=== PATIENT | male | born 1965 | race Two or more races ===

== ENCOUNTER 2017-10-02 10:13 | Emergency (ER) | payer MEDICAID ==
[~2017-10-02] VITALS: Ht 175.3 cm; Wt 86.8 kg
[2017-10-02 10:56] LABS: BASOPHILS % (AUTO) 0.3 % (0-1); EOSINOPHILS # (AUTO) 0.1 X10'3 (0-0.9); EOSINOPHILS % (AUTO) 1.2 % (0-6); HEMATOCRIT 45.8 % (42.0-52.0); HEMOGLOBIN 16.1 g/dl (14.0-17.9); LYMPHOCYTES # (AUTO) 1.5 X10'3 (1.1-4.8); LYMPHOCYTES % (AUTO) 20.9 % (21-51); MEAN CORPUSCULAR HEMOGLOBIN 30.8 PG (27.0-31.0); MEAN CORPUSCULAR HGB CONC 35.2 % (33.0-36.5); MEAN CORPUSCULAR VOLUME 87.5 FL (78-98); MEAN PLATELET VOLUME 8.2 FL (7.4-10.4); MONOCYTES # (AUTO) 0.3 X10'3 (0-0.9); MONOCYTES % (AUTO) 4.2 % (2-12); NEUTROPHILS # (AUTO) 5.4 X10'3 (1.8-7.7); NEUTROPHILS % (AUTO) 73.4 % (42-75); PLATELET COUNT 306 X10'3 (140-440); RED BLOOD COUNT 5.23 X10'6 (4.70-6.10); RED CELL DISTRIBUTION WIDTH 12.4 % (11.5-14.5); WHITE BLOOD COUNT 7.4 X10'3 (4.5-11.0)
[2017-10-02 11:01] LABS: CLARITY,URINE SLIGHTLY CLOUDY (Clear); COLOR,URINE YELLOW (Yellow); GLUCOSE, URINE NEGATIVE (Neg); KETONES,URINE NEGATIVE (Neg); LEUKOCYTE ESTERASE ,URINE NEGATIVE (Neg); NITRITES, URINE NEGATIVE (Neg); OCCULT BLOOD,URINE NEGATIVE (Neg); PH,URINE 7.5 (4.8-8.0); PROTEIN,URINE NEGATIVE (Neg); UROBILINOGEN,URINE 0.2 E.U/dL (0.2-1.0)
[2017-10-02 11:04] LABS: PROTHROMBIN TIME 10.3 SECONDS (9.0-12.0)
[2017-10-02 11:05] LABS: UA COLLECTION TYPE CLN CATCH MIDSTREAM
[2017-10-02] MEDS ORDERED: ondansetron 4mg rapidly disintigrating tab PO ONE (11:05)
[2017-10-02 11:07] LABS: BACTERIA,URINE NONE SEEN /HPF (Neg); MUCUS STRANDS MANY /LPF (Neg); RBC,URINE NONE SEEN /HPF (0-2); SQUAMOUS EPITHELIAL CELL,UR FEW /LPF (FEW); WBC,URINE 0-4 /HPF (0-4)
[2017-10-02 11:14] LABS: ALANINE AMINOTRANSFERASE 34 U/L (12-78); ALBUMIN 4.3 G/DL (3.4-5.0); ALBUMIN/GLOBULIN RATIO 1.1 (1.1-1.5); ALKALINE PHOSPHATASE 64 IU/L (46-116); ANION GAP 8 (8-16); ASPARTATE AMINO TRANSFERASE 23 U/L (10-37); BLOOD UREA NITROGEN 14 MG/DL (7-18); CALCIUM 9.5 MG/DL (8.5-10.1); CHLORIDE 100 MMOL/L (99-107); GLUCOSE 185 MG/DL (70-104); POTASSIUM 4.5 MMOL/L (3.5-5.1); SODIUM 139 MMOL/L (135-145); TOTAL CARBON DIOXIDE 30.8 MMOL/L (24-32); TOTAL PROTEIN 8.3 G/DL (6.4-8.2); eGFR 79 ML/MIN
[2017-10-02 11:36] VITALS: BP 138/83
== END 2017-10-02 11:40 | disposition home or self-care (01) ==
LOC: ER 10:14
DX: R10.32 Left lower quadrant pain (principal); K59.00 Constipation, unspecified; G89.29 Other chronic pain
CPT/HCPCS: 36415; 80053; 81001; 85025; 85610; 99284

== ENCOUNTER 2022-10-22 19:16 | Emergency (ER) | payer MEDICAID ==
[~2022-10-22] VITALS: Ht 172.7 cm; Wt 86.4 kg
[2022-10-22] MEDS ORDERED: acetaminophen w/codeine (30MG) #3 tablet PO ONE (20:20)
[2022-10-22] MEDS ORDERED: neomy sulf/polymyx B sulf/HC 10ml otic suspension RIGHT EAR ONE (20:25)
[2022-10-22 20:45] VITALS: BP 169/76
[2022-10-22] MEDS ORDERED: HYDR-3973 PO ×2 (20:50→20:51)
== END 2022-10-22 21:03 | disposition home or self-care (01) ==
LOC: ER 19:16
DX: H60.91 Unspecified otitis externa, right ear (principal); G89.29 Other chronic pain; Z98.890 Other specified postprocedural states; Z79.899 Other long term (current) drug therapy
CPT/HCPCS: 99283

== ENCOUNTER 2022-10-25 20:57 | Emergency (ER) | payer MEDICAID ==
[~2022-10-25] VITALS: Ht 172.7 cm; Wt 86.4 kg
[~2022-10-25 20:57] MED LIST: HYDR-3973 PO
[2022-10-25 21:02] VITALS: BP 162/93
[2022-10-25 23:12] LABS: BASOPHILS # (AUTO) 0.1 X10'3 (0-0.2); BASOPHILS % (AUTO) 0.5 % (0-1); EOSINOPHILS # (AUTO) 0.1 X10'3 (0-0.9); EOSINOPHILS % (AUTO) 0.6 % (0-6); HEMATOCRIT 44.9 % (42.0-52.0); HEMOGLOBIN 15.3 g/dl (14.0-17.9); LYMPHOCYTES # (AUTO) 2.6 X10'3 (1.1-4.8); LYMPHOCYTES % (AUTO) 24.4 % (21-51); MEAN CORPUSCULAR HEMOGLOBIN 30.7 PG (27.0-31.0); MEAN CORPUSCULAR HGB CONC 34.1 g/dL (33.0-36.5); MEAN CORPUSCULAR VOLUME 90.1 FL (78-98); MONOCYTES # (AUTO) 1.1 X10'3 (0-0.9); MONOCYTES % (AUTO) 9.8 % (2-12); NEUTROPHILS % (AUTO) 64.7 % (42-75); PLATELET COUNT 268 X10'3 (140-440); RED BLOOD COUNT 4.98 X10'6 (4.70-6.10); RED CELL DISTRIBUTION WIDTH 13.2 % (11.5-14.5); WHITE BLOOD COUNT 10.8 X10'3 (4.5-11.0)
[2022-10-25 23:25] LABS: ALANINE AMINOTRANSFERASE 36 U/L (12-78); ALBUMIN 3.5 G/DL (3.4-5.0); ALBUMIN/GLOBULIN RATIO 0.8 (1.1-1.5); ALKALINE PHOSPHATASE 76 IU/L (46-116); ANION GAP 6 (8-16); ASPARTATE AMINO TRANSFERASE 20 U/L (10-37); BILIRUBIN,TOTAL 0.3 MG/DL (0.1-1.0); BLOOD UREA NITROGEN 17 MG/DL (7-18); BUN/CREATININE RATIO 20.5 (10.0-20.0); CALCIUM 9.5 MG/DL (8.5-10.1); CHLORIDE 99 MMOL/L (99-107); CREATININE 0.83 MG/DL (0.60-1.10); GLUCOSE 233 MG/DL (70-104); POTASSIUM 3.9 MMOL/L (3.5-5.1); SODIUM 135 MMOL/L (135-145); TOTAL CARBON DIOXIDE 30.4 MMOL/L (24-32); eGFR > 90 ML/MIN
[2022-10-25 23:31] LABS: C-REACTIVE PROTEIN 11.89 MG/DL (0.0-0.5)
[2022-10-26] MEDS ORDERED: ibuprofen tablet 400 MG TABLET PO ONE (00:25)
[2022-10-26] MEDS ORDERED: acetaminophen 325mg tablet PO ONE (00:25)
[2022-10-26] MEDS ORDERED: Cipro HC otic suspension 10ML bottle RIGHT EAR STA (00:53)
[2022-10-26] MEDS ORDERED: amox tr/potassium clavulanate 875/125mg TAB PO ONE (00:55)
[2022-10-26] MEDS ORDERED: AMOX-580 PO (01:00)
[2022-10-26] MEDS ORDERED: CIPR10DR RIGHT EAR (01:00)
== END 2022-10-26 01:45 | disposition home or self-care (01) ==
LOC: ER 20:57
DX: H60.91 Unspecified otitis externa, right ear (principal); F17.200 Nicotine dependence, unspecified, uncomplicated
CPT/HCPCS: 36415; 70480; 80053; 85025; 85651; 86140; 99284

== ENCOUNTER 2024-03-08 08:51 | Emergency (ER) | payer MEDICAID ==
[~2024-03-08] VITALS: Ht 175.3 cm; Wt 80.2 kg
[2024-03-08 08:53] VITALS: BP 133/78; PULSE 79; RESP 14; TEMP 98.9; O2SAT 98
[2024-03-08] MEDS ORDERED: AMOX875T10 PO (09:40)
== END 2024-03-08 09:45 | disposition home or self-care (01) ==
LOC: ER 08:51
DX: K04.7 Periapical abscess without sinus (principal); K08.89 Other specified disorders of teeth and supporting structures; G89.29 Other chronic pain; M54.9 Dorsalgia, unspecified; Z98.890 Other specified postprocedural states
CPT/HCPCS: 99283

== ENCOUNTER 2024-06-18 09:17 | Emergency (ER) | payer MEDICAID ==
[~2024-06-18] VITALS: Ht 175.3 cm; Wt 93.3 kg
[2024-06-18 10:06] LABS: BASOPHILS # (AUTO) 0.1 X10'3 (0-0.2); BASOPHILS % (AUTO) 0.7 % (0-1); EOSINOPHILS % (AUTO) 0.5 % (0-6); HEMATOCRIT 46.4 % (42.0-52.0); HEMOGLOBIN 16.1 g/dl (14.0-17.9); LYMPHOCYTES # (AUTO) 2.5 X10'3 (1.1-4.8); LYMPHOCYTES % (AUTO) 31.7 % (21-51); MEAN CORPUSCULAR HEMOGLOBIN 30.8 PG (27.0-31.0); MEAN CORPUSCULAR HGB CONC 34.8 g/dL (33.0-36.5); MEAN CORPUSCULAR VOLUME 88.7 FL (78-98); MONOCYTES # (AUTO) 0.3 X10'3 (0-0.9); MONOCYTES % (AUTO) 4.3 % (2-12); NEUTROPHILS # (AUTO) 4.9 X10'3 (1.8-7.7); NEUTROPHILS % (AUTO) 62.8 % (42-75); PLATELET COUNT 265 X10'3 (140-440); RED BLOOD COUNT 5.23 X10'6 (4.70-6.10); RED CELL DISTRIBUTION WIDTH 12.9 % (11.5-14.5); WHITE BLOOD COUNT 7.8 X10'3 (4.5-11.0)
[2024-06-18 10:13] LABS: ALANINE AMINOTRANSFERASE 24 U/L (12-78); ALBUMIN/GLOBULIN RATIO 1.1 (1.1-1.5); ALKALINE PHOSPHATASE 87 IU/L (46-116); ANION GAP 8 (8-16); ASPARTATE AMINO TRANSFERASE 15 U/L (10-37); BILIRUBIN,TOTAL 0.6 MG/DL (0.1-1.0); BLOOD UREA NITROGEN 11 MG/DL (7-18); BUN/CREATININE RATIO 15.7 (10.0-20.0); CALCIUM 9.4 MG/DL (8.5-10.1); CHLORIDE 100 MMOL/L (99-107); GLUCOSE 255 MG/DL (70-104); POTASSIUM 4.2 MMOL/L (3.5-5.1); SODIUM 137 MMOL/L (135-145); TOTAL PROTEIN 7.8 G/DL (6.4-8.2); eCRCL 118 ML/MIN; eGFR > 90 ML/MIN
[2024-06-18 10:20] LABS: PRO BRAIN NATRIURETIC PEPTIDE 59 PG/ML (0-125)
[2024-06-18] MEDS: ketorolac trometh 15mg/ml vial 15 MG/ML ML IM ONE (11:25)
[2024-06-18] MEDS ORDERED: OMEP20TA23 PO (11:44)
[2024-06-18] MEDS ORDERED: LACT1CAP86 PO (11:44)
[2024-06-18 11:50] VITALS: BP 132/83; PULSE 64; RESP 16; TEMP 98.5; O2SAT 99
== END 2024-06-18 12:25 | disposition home or self-care (01) ==
LOC: ER 09:18
DX: M94.0 Chondrocostal junction syndrome [Tietze] (principal); E11.9 Type 2 diabetes mellitus without complications; G89.29 Other chronic pain; M54.9 Dorsalgia, unspecified; Z79.84 Long term (current) use of oral hypoglycemic drugs; Z98.890 Other specified postprocedural states
CPT/HCPCS: 36415; 71045; 80053; 83880; 84484; 85025; 93005; 96372; 99285; J1885